=== PATIENT | female | born 2000 | race Two or more races ===

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

== ENCOUNTER 2020-05-30 16:38 | Emergency (ER) | payer MEDICAID, OTHER ==
[~2020-05-30] VITALS: Ht 165.1 cm; Wt 91.0 kg
[2020-05-30 16:55] VITALS: BP 114/70
== END 2020-05-30 17:30 ==
LOC: ER 16:38
DX: R60.0 Localized edema (principal); Z53.21 Procedure and treatment not carried out due to patient leaving prior to being seen by health care provider

== ENCOUNTER 2021-05-13 19:59 | Emergency (ER) | payer MEDICAID ==
[~2021-05-13] VITALS: Ht 165.1 cm; Wt 91.0 kg
[2021-05-13] MEDS ORDERED: ONDANSETRON PF 4 MG/2 ML VIAL. IVP ONE (20:15)
[2021-05-13] MEDS ORDERED: IV NORMAL SALINE 1000ML BAG 1,000 ML IV ONE (20:15)
[2021-05-13 20:16] LABS: BASO % 1 % (0-3); EOS # 0.1 x10^3/uL (0.0-0.7); EOS % 2 % (0-3); HEMATOCRIT 43.2 % (36.0-47.0); HEMOGLOBIN 14.5 g/dL (12.0-15.5); LYMPH # 1.9 x10^3/uL (1.0-4.8); LYMPH % 40 % (24-48); MEAN CORPUSCULAR HEMOGLOBIN 32 pg (25-35); MEAN CORPUSCULAR HGB CONC 33 g/dL (31-37); MEAN CORPUSCULAR VOLUME 94 fL (79-100); MONO # 0.3 x10^3/uL (0.0-1.1); MONO % 7 % (0-9); NEUT # 2.5 x10^3/uL (1.8-7.7); NEUT % 51 % (31-73); PLATELET COUNT 319 x10^3/uL (140-400); RED BLOOD COUNT 4.59 x10^6/uL (3.50-5.40); RED CELL DISTRIBUTION WIDTH 14.1 % (11.5-14.5); WHITE BLOOD COUNT 4.8 x10^3/uL (4.0-11.0)
[2021-05-13 20:27] LABS: CALCIUM 8.8 mg/dL (8.5-10.1); CREATININE 0.9 mg/dL (0.6-1.0); GFR 77.6; POTASSIUM 3.9 mmol/L (3.5-5.1)
[2021-05-13 20:32] LABS: PREG TEST PT QUAL NEGATIVE (NEG)
[2021-05-13 20:34] LABS: ALBUMIN 4.3 g/dL (3.4-5.0); TOTAL BILIRUBIN 0.2 mg/dL (0.2-1.0); TOTAL PROTEIN 8.4 g/dL (6.4-8.2)
[2021-05-13 20:35] LABS: ACETAMIN < 2 mcg/ml (10-30); ETHANOL 61 mg/dL (0-10); SALIC 3.1 mg/dL (2.8-20.0)
[2021-05-13 20:43] LABS: BARBITURATES NEG (NEG); BENZODIAZEPINES NEG (NEG); CANNABINOIDS NEG (NEG); COCAINE POS (NEG); METHADONE NEG (NEG); OPIATES NEG (NEG); PHENCYCLIDINE NEG (NEG)
[2021-05-13 20:44] LABS: AMPHETAMINE/METHAMPHETAMINE POS (NEG)
--- NOTE | 2021-05-13 21:46 | PHYS DOC ---
Past Medical History Past Medical History: No Pertinent History Past Surgical History: No Surgical History Smoking Status: Current Some Day Smoker Alcohol Use: Occasionally Drug Use: None Adult General Chief Complaint Chief Complaint: OVERDOSE HPI HPI The patient is a 21-year-old female who presents for evaluation of an apparent opiate overdose. Ms. Vyas presents via EMS because she passed out and was either not breathing or minimally breathing after drinking alcohol and snorting one half of a small round blue pill which was probably counterfeit oxycodone. When EMS arrived friends were doing chest compressions but patient had a pulse for EMS and was breathing to some extent on her own. They administered IV Narcan whereupon patient became awake and alert. She remains awake and alert upon arrival. She confirms that the drug use was recreational and not a self-harm gesture. She denies pain anywhere and is in no acute distress. Vital signs are appropriate here. Review of Systems Review of Systems A 12 point review of systems was completed and was negative except where noted in HPI above. Current Medications Current Medications Current Medications Medications (Trade) Dose Ordered Sig/Kalyani Start Time Stop Time Status Last Admin Dose Admin Ondansetron HCl (Zofran) 4 mg 1X ONCE 05/13/21 20:15 05/13/21 20:16 DC Sodium Chloride 1,000 ml @ 1,000 mls/hr 1X ONCE 05/13/21 20:15 05/13/21 21:14 DC 05/13/21 20:15 1,000 MLS/HR Allergies Allergies Allergies Coded Allergies Type Severity Reaction Last Updated Verified No Known Drug Allergies 11/06/16 No Physical Exam Physical Exam 21-year-old female appearing nontoxic and in no acute distress. Head is normocephalic and atraumatic. Neck is supple and nontender. Oropharynx is moist. Lungs are clear to auscultation at all stations. There is a normal S1 and S2 without rubs or gallops and capillary refill is appropriate, less than 2 seconds globally. Abdomen is soft, nontender and nondistended. Skin is warm and dry without cyanosis, clubbing or edema. Psychiatrically, patient demonstrates appropriate mood and affect and is alert. Current Patient Data Vital Signs Vital Signs Date Time Temp Pulse Resp B/P (MAP) Pulse Ox O2 Delivery O2 Flow Rate FiO2 05/13/21 22:02 84 20 98 4/7/22 20:13 97.7 121/85 (97) Nasal Cannula 3.0 97.7 Lab Values Laboratory Tests Test 05/13/21 20:05 05/13/21 20:20 White Blood Count 4.8 x10^3/uL (4.0-11.0) Red Blood Count 4.59 x10^6/uL (3.50-5.40) Hemoglobin 14.5 g/dL (12.0-15.5) Hematocrit 43.2 % (36.0-47.0) Mean Corpuscular Volume 94 fL (79-100) Mean Corpuscular Hemoglobin 32 pg (25-35) Mean Corpuscular Hemoglobin Concent 33 g/dL (31-37) Red Cell Distribution Width 14.1 % (11.5-14.5) Platelet Count 319 x10^3/uL (140-400) Neutrophils (%) (Auto) 51 % (31-73) Lymphocytes (%) (Auto) 40 % (24-48) Monocytes (%) (Auto) 7 % (0-9) Eosinophils (%) (Auto) 2 % (0-3) Basophils (%) (Auto) 1 % (0-3) Neutrophils # (Auto) 2.5 x10^3/uL (1.8-7.7) Lymphocytes # (Auto) 1.9 x10^3/uL (1.0-4.8) Monocytes # (Auto) 0.3 x10^3/uL (0.0-1.1) Eosinophils # (Auto) 0.1 x10^3/uL (0.0-0.7) Basophils # (Auto) 0.0 x10^3/uL (0.0-0.2) Sodium Level 142 mmol/L (136-145) Potassium Level 3.9 mmol/L (3.5-5.1) Chloride Level 104 mmol/L (98-107) Carbon Dioxide Level 26 mmol/L (21-32) Anion Gap 12 (6-14) Blood Urea Nitrogen 7 mg/dL (7-20) Creatinine 0.9 mg/dL (0.6-1.0) Estimated GFR (Cockcroft-Gault) 77.6 BUN/Creatinine Ratio 8 (6-20) Glucose Level 93 mg/dL (70-99) Calcium Level 8.8 mg/dL (8.5-10.1) Total Bilirubin 0.2 mg/dL (0.2-1.0) Aspartate Amino Transferase (AST) 23 U/L (15-37) Alanine Aminotransferase (ALT) 23 U/L (14-59) Alkaline Phosphatase 53 U/L (46-116) Total Protein 8.4 g/dL (6.4-8.2) H Albumin 4.3 g/dL (3.4-5.0) Albumin/Globulin Ratio 1.0 (1.0-1.7) Serum Test, Qualitative Negative (NEG) Salicylates Level 3.1 mg/dL (2.8-20.0) Salicylate Last Dose Date Salicylate Last Dose Time Acetaminophen Level < 2 mcg/ml (10-30) L Acetaminophen Last Dose Date Acetaminophen Last Dose Time Ethyl Alcohol Level 61 mg/dL (0-10) H Urine Opiates Screen Neg (NEG) Urine Methadone Screen Neg (NEG) Urine Barbiturates Neg (NEG) Urine Phencyclidine Screen Neg (NEG) Urine Amphetamine/Methamphetamine Pos (NEG) Urine Benzodiazepines Screen Neg (NEG) Urine Cocaine Screen Pos (NEG) Urine Cannabinoids Screen Neg (NEG) Urine Ethyl Alcohol Pos (NEG) Laboratory Tests 05/13/21 20:05 Laboratory Tests 05/13/21 20:05 EKG EKG Sinus rhythm, rate 103, no acute ST elevation or depression, ND 142, QRS 82, QTc 479, EP interpretation. Nonischemic tracing, intervals appropriate. Radiology/Procedures Radiology/Procedures [] Course & Med Decision Making Course & Med Decision Making We will check basic labs and toxicology studies as noted, give some IV fluids and some preemptive Zofran, and will observe for several hours to ensure that the patient does not sedate. If she remains at her neurocognitive baseline and does not develop any symptoms and work-up is reassuring, anticipate likely discharge home. Patient understands and agrees. 2252: Patient has been observed uneventfully here for multiple hours. She has not had any problems with sedation. Labs unremarkable. Will discharge home per her request. She understands if she feels worse instead of better or develops other new symptoms of concern that she should return to the emergency department immediately for reevaluation. All questions are answered. Critical care time was 37 minutes for severe recreational opiate overdose re quiring reversal with Narcan. Dragon Disclaimer Dragon Disclaimer This electronic medical record was generated, in whole or in part, using a voice recognition dictation system. Departure Departure Impression: Primary Impression: Opiate overdose Disposition: 01 HOME / SELF CARE / HOMELESS Condition: IMPROVED Patient Instructions: Narcotic Overdose Additional Instructions: Follow-up very closely with your primary care doctor in the office in the next 2 to 4 days for a reevaluation of your symptoms and discussion of next best steps in care. Drink plenty of fluids to stay hydrated and get plenty of rest. Do not use illegal drugs to reduce very serious risks to your health. Return to the emergency department right away for worsening symptoms of any kind or with any other new symptoms of concern. Problem Qualifiers Primary Impression: Opiate overdose Encounter type: initial encounter Injury intent: accidental or unintentional Qualified Codes: T40.601A - Poisoning by unspecified narcotics, accidental (unintentional), initial encounter JUDITH LOPEZ MD May 13, 2021 21:46
[2021-05-13 22:32] VITALS: BP 116/79
[2021-05-25] MEDS ORDERED: CEFD300C PO (21:06)
[2021-05-25] MEDS ORDERED: DOXY100T PO (21:06)
== END 2021-05-13 23:06 | disposition home or self-care (01) ==
LOC: ER 19:59
DX: T40.2X1A Poisoning by other opioids, accidental (unintentional), initial encounter (principal); F17.200 Nicotine dependence, unspecified, uncomplicated; X58.XXXA Exposure to other specified factors, initial encounter; Y93.89 Activity, other specified; Y92.89 Other specified places as the place of occurrence of the external cause; Y99.8 Other external cause status
CPT/HCPCS: 36415; 80053; 80307; 80329; 84703; 85025; 96360; 99291; G0480; J7030